=== PATIENT | male | born 1955 | race Caucasian/White ===

== ENCOUNTER 2018-06-07 16:16 | Emergency (ER) | payer OTHER, SELFPAY ==
[2018-06-07 16:21] VITALS: BP 157/80; PULSE 86; RESP 21; TEMP 37; O2SAT 99
--- NOTE | 2018-06-07 16:36 | W.ED.GENAD ---
Discharge Plan Disposition Patient Disposition: AGAINST MEDICAL ADVICE Condition: Serious Discharge Details Chief Complaint: CVA/TIA Clinical Impression: Transient ischemic attack (TIA) Primary Care Provider: Kristin Rivas ED Provider: Guido Rudd Home Meds and New Rx's Prescriptions: Continue prednisolone acetate [Pred Forte] 5 ML drops,suspension 1 drp OS BID RF: 0 atropine 15 ML drops 1 drp OS DAILY RF: 0 levothyroxine 50 mcg tablet 50 mcg PO DAILY Qty: 90 RF: 3 Discharge Instructions Instructions: Transient Ischemic Attack (ED), Against Medical Advice (ED) Additional Instructions: You are leaving AGAINST MEDICAL ADVICE. You may have life-threatening OR lifestyle modifying disease. Please know that you can return to the emergency department at any point for further workup and treatment. Please contact your primary care physician to arrange follow-up. Please follow-up with neurology as soon as possible. Return to the ER for any worsening or new concerning symptoms. Referrals: Kristin Rivas MD [Primary Care Provider] - Marilyn Fuentes MD [ [facility] STAFF PHYSICIAN] - Medical Decision Making [facility] Narrative Medical decision making narrative: 16:45 --62-year-old male with history of hypothyroidism, blindness, presents with sudden onset of weakness of his right upper extremity. Weakness has improved but he still describes a sensation of heaviness in his right arm. Patient has mild right facial droop on exam. ECG reviewed and interpreted by me: Normal sinus rhythm 87 bpm, normal axis, nondiagnostic Stat CT of the head. -- CT head interpreted by radiology: mild global cerebral atrophy, mild atherosclerosis of the cavernous carotid arteries. 17:50 -- Patient reassessed: stable, continues to have some heaviness in right arm, no worsening, no new symptoms. Plan for CTA. Labs pending. 19:30 --CTA of the neck and interpreted by radiology: No acute findings. Plan for admission. I called and spoke with Dr. Balbuena who will admit. 19:45 --work with patient about plan and patient declines admission. I specifically explained to him the high risk of recurrent stroke and recommendation that he be observed in the hospital tonight. I further explained that he will need additional diagnostic testing to determine if this was in fact a stroke and the etiology. I explained that this testing may be delayed she do not be admitted. I explained the patient may suffer from life-threatening her lifestyle modifying disease should he leave at this point AGAINST MEDICAL ADVICE. Patient verbalized understanding of my concerns and still declined admission. Patient has capacity to make informed decision TO REFUSE CARE. I will do my best to help this patient transition to outpatient care and will request timely follow-up with neurology and his primary care physician. Patient advised to take a full dose aspirin daily. HPI - General Adult General Mode of arrival: ambulatory. Date/Time Provider Initiated Documentation: 06/07/18 16:23. Limitations to Documentation: no limitations. Information obtained by: patient and family (). HPI Narrative: 62-year-old male with history of hypothyroidism, blindness, here with chief complaint of weakness of his right arm. Patient notes symptoms started suddenly about 1 hour prior to arrival. Weakness was initially severe and has improved. Still feels somewhat heavy. No other associated deficits. Patient denies headache Patient does state that he had some pain in his right upper back last night after lifting heavy object yesterday. Related Data Home Medications Medication Instructions Recorded Confirmed atropine 1 drp OS DAILY 12/27/12 06/07/18 prednisolone acetate [Pred Forte] 1 drp OS BID drp 12/27/12 06/07/18 Previous Rx's Medication Instructions Recorded levothyroxine 50 mcg tablet 50 mcg PO DAILY #90 tab-cap 06/07/18 Allergies Allergy/AdvReac Type Severity Reaction Status Date / Time Penicillins Allergy Severe Swelling/Ed Unverified 06/07/18 16:24 claudia General Stated Complaint: CVA/TIA SO: 2 Review of Systems Review of Systems All systems reviewed & are unremarkable except as noted in HPI and below Constitutional Reports weakness Cardiovascular Denies chest pain Musculoskeletal Denies numbness Neurologic Reports as per HPI, Denies numbness and Reports weakness PFSH Family History Mother Personal history of malignant neoplasm Father Heart disease Sister No problems noted. Sister No problems noted. Sister No problems noted. Sister No problems noted. Sister No problems noted. Brother No problems noted. Medical History Hypothyroidism (Chronic) Social History Smoking/Tobacco Use Status: Never Exam Const General: cooperative and no acute distress Orientation: alert and awake HENW[place] Head: normocephalic and atraumatic Mouth: moist mucous membranes Neck Neck: normal visual inspection, trachea midline and No JVD Resp Effort & Inspection: normal respiratory effort Auscultation: clear to auscultation bilaterally, no rales, no rhonchi and no wheezes Cardio Rate: regular rate Rhythm: regular rhythm Heart Sounds: no gallops, no murmurs and no rubs GI Palpation: soft and nontender Auscultation: normal bowel sounds Skin General skin exam: dry skin Other: warm Neuro General: alert, awake, tone normal and moves all extremities Cranial Nerves: tongue midline Cognition: normal cognition Speech: speech normal Motor: strength 5/5 throughout and other (rt facial droop mild) Sensory Exam: no sensory deficits noted Coordination: rapid alternating movement UE normal Extrem General: no calf tenderness bilaterally and no pedal edema Psych Appearance: grossly normal Mental Status: mental status grossly normal Affect: normal affect Course Vital Signs Temperature 37 C 06/07/18 16:21 Pulse 86 06/07/18 16:21 Respiratory Rate 21 06/07/18 16:21 Blood Pressure 157/80 H 06/07/18 16:21 Pulse Oximetry 99 06/07/18 16:21 Temperature 37 C 06/07/18 16:21 Pulse 86 06/07/18 16:21 Respiratory Rate 21 06/07/18 16:21 Blood Pressure 157/80 H 06/07/18 16:21 Pulse Oximetry 99 06/07/18 16:21
--- NOTE | 2018-06-07 16:43 | DI.CT_ITS ---
SYMPTOM/DIAGNOSIS: CVA, RT ARM AND FACIAL WEAKNESS, RT FACIAL DROOP NONCONTRAST HEAD CT: A noncontrast cranial CT was performed. The ventricular system is normal in appearance. There is no evidence of an intracranial mass lesion. There is no evidence of a subdural or epidural hematoma. No focal areas of decreased attenuation are seen. CONCLUSION: Normal noncontrast Cranial CT. CTA CERVICAL AND CRANIAL: CT angiography was performed with multi slice acquisition and multi planar and 3D reconstruction. CT angiography of the craniocervical region was performed with intravenous infusion of 85 cc's of Omnipaque 350. The visualized portions of the lungs are clear. Tracheal laryngeal structures appear intact. Visualized paranasal sinuses and mastoid air cells are clear. No cervical mass or adenopathy identified. No superior mediastinal mass or adenopathy. No intracranial mass lesion or enhancing lesion is seen. The orbital structures appear intact. Some rim calcification of the left optic globe is noted along with some lens calcification. Visualized aortic arch is unremarkable. Right common internal and external carotid artery are within normal limits with no significant stenosis, occlusion or aneurysm formation. Left common internal and external carotid artery are within the normal limits with no evidence of stenosis, occlusion, or aneurysm. Right and left vertebral arteries are unremarkable with no evidence of a stenosis or occlusion. Left dominant vertebral circulation noted. Basilar artery appears intact. Unremarkable appearance of the [place] region, no aneurysm of the communicating arteries seen. No significant stenosis, occlusion or aneurysm of right or left anterior middle or posterior cerebral arteries. Note is made of mild degenerative changes of the cervical spine. CONCLUSION: Negative CT angiography of cervicocranial region.
--- NOTE | 2018-06-07 16:47 | ED.GENADUL_ITS ---
Discharge Plan Disposition Patient Disposition: AGAINST MEDICAL ADVICE Condition: Serious Discharge Details Chief Complaint: CVA/TIA Clinical Impression: Transient ischemic attack (TIA) Primary Care Provider: Kristin Rivas ED Provider: Guido Rudd Home Meds and New Rx's Prescriptions: Continue prednisolone acetate [Pred Forte] 5 ML drops,suspension 1 drp OS BID RF: 0 atropine 15 ML drops 1 drp OS DAILY RF: 0 levothyroxine 50 mcg tablet 50 mcg PO DAILY Qty: 90 RF: 3 Discharge Instructions Instructions: Transient Ischemic Attack (ED), Against Medical Advice (ED) Additional Instructions: You are leaving AGAINST MEDICAL ADVICE. You may have life-threatening OR lifestyle modifying disease. Please know that you can return to the emergency department at any point for further workup and treatment. Please contact your primary care physician to arrange follow-up. Please follow- up with neurology as soon as possible. Return to the ER for any worsening or new concerning symptoms. Referrals: Kristin Rivas MD [Primary Care Provider] - Marilyn Fuentes MD [ [facility] STAFF PHYSICIAN] - Medical Decision Making [facility] Narrative Medical decision making narrative: 16:45 --62-year-old male with history of hypothyroidism, blindness, presents with sudden onset of weakness of his right upper extremity. Weakness has improved but he still describes a sensation of heaviness in his right arm. Patient has mild right facial droop on exam. ECG reviewed and interpreted by me: Normal sinus rhythm 87 bpm, normal axis, nondiagnostic Stat CT of the head. -- CT head interpreted by radiology: mild global cerebral atrophy, mild atherosclerosis of the cavernous carotid arteries. 17:50 -- Patient reassessed: stable, continues to have some heaviness in right arm, no worsening, no new symptoms. Plan for CTA. Labs pending. 19:30 --CTA of the neck and interpreted by radiology: No acute findings. Plan for admission. I called and spoke with Dr. Balbuena who will admit. 19:45 --work with patient about plan and patient declines admission. I specifically explained to him the high risk of recurrent stroke and recommendation that he be observed in the hospital tonight. I further explained that he will need additional diagnostic testing to determine if this was in fact a stroke and the etiology. I explained that this testing may be delayed she do not be admitted. I explained the patient may suffer from life- threatening her lifestyle modifying disease should he leave at this point AGAINST MEDICAL ADVICE. Patient verbalized understanding of my concerns and still declined admission. Patient has capacity to make informed decision TO REFUSE CARE. I will do my best to help this patient transition to outpatient care and will request timely follow-up with neurology and his primary care physician. Patient advised to take a full dose aspirin daily. HPI - General Adult General Mode of arrival: ambulatory . Date/Time Provider Initiated Documentation: 06/07/18 16:23 . Limitations to Documentation: no limitations . Information obtained by: patient and family () . HPI Narrative: 62-year-old male with history of hypothyroidism, blindness, here with chief complaint of weakness of his right arm. Patient notes symptoms started suddenly about 1 hour prior to arrival. Weakness was initially severe and has improved. Still feels somewhat heavy. No other associated deficits. Patient denies headache Patient does state that he had some pain in his right upper back last night after lifting heavy object yesterday. Related Data Home Medications Medication Instructions Recorded Confirmed atropine 1 drp OS DAILY 12/27/12 06/07/18 prednisolone acetate [Pred Forte] 1 drp OS BID drp 12/27/12 06/07/18 Previous Rx's Medication Instructions Recorded levothyroxine 50 mcg tablet 50 mcg PO DAILY #90 tab-cap 06/07/18 Allergies Allergy/AdvReac Type Severity Reaction Status Date / Time Penicillins Allergy Severe Swelling/Ed Unverified 06/07/18 16:24 claudia General Stated Complaint: CVA/TIA SO: 2 Review of Systems Review of Systems All systems reviewed & are unremarkable except as noted in HPI and below Constitutional Reports weakness Cardiovascular Denies chest pain Musculoskeletal Denies numbness Neurologic Reports as per HPI, Denies numbness and Reports weakness PFSH Family History Mother Personal history of malignant neoplasm Father Heart disease Sister No problems noted. Sister No problems noted. Sister No problems noted. Sister No problems noted. Sister No problems noted. Brother No problems noted. Medical History Hypothyroidism (Chronic) Social History Smoking/Tobacco Use Status: Never Exam Const General: cooperative and no acute distress Orientation: alert and awake HE[place] Head: normocephalic and atraumatic Mouth: moist mucous membranes Neck Neck: normal visual inspection, trachea midline and No JVD Resp Effort & Inspection: normal respiratory effort Auscultation: clear to auscultation bilaterally, no rales, no rhonchi and no wheezes Cardio Rate: regular rate Rhythm: regular rhythm Heart Sounds: no gallops, no murmurs and no rubs GI Palpation: soft and nontender Auscultation: normal bowel sounds Skin General skin exam: dry skin Other: warm Neuro General: alert, awake, tone normal and moves all extremities Cranial Nerves: tongue midline Cognition: normal cognition Speech: speech normal Motor: strength 5/5 throughout and other (rt facial droop mild) Sensory Exam: no sensory deficits noted Coordination: rapid alternating movement UE normal Extrem General: no calf tenderness bilaterally and no pedal edema Psych Appearance: grossly normal Mental Status: mental status grossly normal Affect: normal affect Course Vital Signs Temperature 37 C 06/07/18 16:21 Pulse 86 06/07/18 16:21 Respiratory Rate 21 06/07/18 16:21 Blood Pressure 157/80 H 06/07/18 16:21 Pulse Oximetry 99 06/07/18 16:21 Temperature 37 C 06/07/18 16:21 Pulse 86 06/07/18 16:21 Respiratory Rate 21 06/07/18 16:21 Blood Pressure 157/80 H 06/07/18 16:21 Pulse Oximetry 99 06/07/18 16:21
--- NOTE | 2018-06-07 17:21 | DI.VRAD_ITS ---
EXAM: CT Head Without Intravenous Contrast CLINICAL HISTORY: 62 years old, male; Signs and symptoms; Other: Right arm weakness, rt facial TECHNIQUE: Axial computed tomography images of the head/brain without intravenous contrast. All CT scans at this facility use at least one of these dose optimization techniques: automated exposure control; mA and/or kV adjustment per patient size (includes targeted exams where dose is matched to clinical indication); or iterative reconstruction. Coronal and sagittal reformatted images were created and reviewed. COMPARISON: No relevant prior studies available. FINDINGS: Brain: Mild global cerebral atrophy. No CT scan evidence of acute stroke. No hemorrhage. No significant white matter disease. Ventricles: Unremarkable. No ventriculomegaly. Bones/joints: Unremarkable. No acute fracture. Soft tissues: Unremarkable. Vasculature: Mild atherosclerosis of the cavernous carotid arteries. Sinuses: Unremarkable as visualized. No acute sinusitis. Mastoid air cells: Unremarkable as visualized. No mastoid effusion. IMPRESSION: No acute findings. The findings were directly communicated to Deshaun Parra NP at 5:20 PM EDT on 06/07/2018 via telephone conference as per stroke protocol. Dictated and Authenticated by: Aristeo Kenny MD. Ordering:ANÍBAL BLUE MD
[2018-06-07 17:51] LABS: Abs Immature Grans 0.01 k/cumm (0.0-0.09); Absolute Basophil Count 0.02 k/cumm (0.0-0.2); Absolute Eosinophil Count 0.07 k/cumm (0.0-0.7); Absolute Lymphocyte Count 1.64 k/cumm (1.2-3.4); Absolute Monocyte Count 0.43 k/cumm (0.11-0.7); Basophils % 0.4; Eosinophils % 1.3; HCT 45.1 % (40.0-50.0); HGB 15.8 g/dL (13.5-17.5); Immature Grans % 0.2; Lymphocytes % 29.4; Mean Corpuscular Hemoglobin 28.2 pg (27.0-33.0); Mean Corpuscular Volume 80.5 fL (80-95); Mean Platelet Volume 9.1 fL (8.0-11.0); Monocytes % 7.7; Platelet Count 180 x1000/uL (130-400); RBC Distribution Width 12.3 % (11.8-14.1); White Blood Cell Count 5.57 k/cumm (4.4-10.8)
[2018-06-07 18:09] LABS: ALT 31 U/L (12-78); AST 18 U/L (15-37); Albumin 3.7 g/dL (3.4-5.0); Alkaline Phosphatase 48 U/L (46-116); Anion Gap 7.3 mmol/L (3-11); BUN 16 mg/dL (7-18); Bilirubin, Total 0.5 mg/dL (0.2-1.0); CO2 27.7 mmol/L (21.0-32.0); CREATININE 1.05 mg/dL (0.70-1.30); Calcium 8.4 mg/dL (8.5-10.1); Chloride 105 mmol/L (98-107); Glucose 135 mg/dL (70-100); Potassium 3.7 mmol/L (3.5-5.1); Sodium 140 mmol/L (136-145); Total Protein 7.1 g/dL (6.4-8.2)
[2018-06-07 18:11] LABS: Troponin I < 0.02 ng/mL (0.00-0.06)
[2018-06-07 18:15] LABS: TSH (W/Ref FT4) 1.28 uIU/mL (0.358-3.74)
[2018-06-07] MEDS: Omnipaque 350 MG/ML 100 ML BTL IV (18:25)
--- NOTE | 2018-06-07 19:20 | DI.VRAD_ITS ---
EXAM: CT Angiography Head With Intravenous Contrast CLINICAL HISTORY: 62 years old, male; Signs and symptoms; Other: CVA, rt facial droop and rt ar TECHNIQUE: Axial computed tomographic angiography images of the head with intravenous contrast using CT angiography protocol. All CT scans at this facility use at least one of these dose optimization techniques: automated exposure control; mA and/or kV adjustment per patient size (includes targeted exams where dose is matched to clinical indication); or iterative reconstruction. MIP reconstructed images were created and reviewed. CONTRAST: 85 mL of omnipaque 350 administered intravenously. COMPARISON: No relevant prior studies available. FINDINGS: Right internal carotid artery: No acute findings. Intracranial segment is patent with no significant stenosis. No aneurysm. Right anterior cerebral artery: Unremarkable. No occlusion or significant stenosis. No aneurysm. Right middle cerebral artery: Unremarkable. No occlusion or significant stenosis. No aneurysm. Right posterior cerebral artery: Unremarkable. No occlusion or significant stenosis. No aneurysm. Right vertebral artery: Unremarkable as visualized. Left internal carotid artery: No acute findings. Intracranial segment is patent with no significant stenosis. No aneurysm. Left anterior cerebral artery: Unremarkable. No occlusion or significant stenosis. No aneurysm. Left middle cerebral artery: Unremarkable. No occlusion or significant stenosis. No aneurysm. Left posterior cerebral artery: Unremarkable. No occlusion or significant stenosis. No aneurysm. Left vertebral artery: Unremarkable as visualized. Basilar artery: Unremarkable. No occlusion or significant stenosis. No aneurysm. Brain: Mild global cerebral atrophy. IMPRESSION: No acute findings. EXAM: CT Angiography Neck With Intravenous Contrast CLINICAL HISTORY: 62 years old, male; Signs and symptoms; Other: CVA, rt facial droop and rt ar TECHNIQUE: Axial computed tomographic angiography images of the neck with intravenous contrast using CT angiography protocol. MIP reconstructed images were created and reviewed. CONTRAST: 85 mL of omnipaque 350 administered intravenously. 85 mL of omnipaque 350 administered intravenously. COMPARISON: No relevant prior studies available. FINDINGS: VASCULATURE: Right common carotid artery: Unremarkable. No significant stenosis. No dissection or occlusion. Right internal carotid artery: Unremarkable. Extracranial segment is patent with no significant stenosis. No dissection or occlusion. Right external carotid artery: Unremarkable. No occlusion. Right vertebral artery: Unremarkable. No significant stenosis. No dissection or occlusion. Left common carotid artery: Unremarkable. No significant stenosis. No dissection or occlusion. Left internal carotid artery: Unremarkable. Extracranial segment is patent with no significant stenosis. No dissection or occlusion. Left external carotid artery: Unremarkable. No occlusion. Left vertebral artery: Unremarkable. No significant stenosis. No dissection or occlusion. NECK: Bones/joints: Degenerative spondylosis of the cervical and upper thoracic spine. No acute fracture. No dislocation. Soft tissues: Unremarkable as visualized. No mass. CAROTID STENOSIS REFERENCE USING NASCET CRITERIA: % ICA stenosis = (1 - narrowest ICA diameter/diameter of distal cervical ICA) x 100. Mild - <50% stenosis. Moderate - 50-69% stenosis. Severe - 70-94% stenosis. Near occlusion - 95-99% stenosis. Occluded - 100% stenosis. IMPRESSION: No acute findings. Dictated and Authenticated by: Aristeo Kenny MD. Ordering:ANÍBAL BLUE MD
[2018-06-07 19:47] VITALS: BP 146/80; PULSE 88; RESP 18; TEMP 36.8; O2SAT 99
[2018-06-07] MEDS: Aspirin 325 MG TAB PO (19:53)
--- NOTE | 2018-06-08 09:04 | PDOC.ERCMPRO ---
Care Management Progress Note 06/08/18-Pt seen on 06/07/[address] for [address] Eula Rodrigez. Pt refused to be admitted inpt. although, Dr. eula Rodrigez explained the riskd. Pt left AMA. F/U ROBERT request was faxed over to Dr. Lev Rivas's office at [facility]. called [facility] and spoke with Brittney. Pt has been booked for f/u appt. with Dr. Rivas on 06/09/18 at 8:40am. notified Dr. Eula rodrigez by email of this.
--- NOTE | 2018-06-08 09:10 | CMPROGNOTE_ITS ---
Care Management Progress Note 06/08/18-Pt seen on 06/07/18 for [address] stroke [address] Eula Rodrigez. Pt refused to be admitted inpt. although, Dr. eula Rodrigez explained the riskd. Pt left AMA. F /U ROBERT request was faxed over to Dr. Lev Rivas's office at [facility]. called [facility] and spoke with Brittney. Pt has been booked for f/u appt. with Dr. Rivas on 06/09/18 at 8:40am. notified Dr. Eula rodrigez by email of this.
== END 2018-06-07 20:17 | disposition left against medical advice (07) ==
PROVIDERS: Emergency Provider Student in an Organized Health Care Education/Training Program; PCP Family Medicine
DX: G45.9 Transient cerebral ischemic attack, unspecified (principal); R29.810 Facial weakness; Z53.29 Procedure and treatment not carried out because of patient's decision for other reasons
CPT/HCPCS: 36415; 36416; 70496; 70498; 80053; 82962; 93005; 99285; 70450; 83735; 84443; 84484; 85025; 93010; J3490

== ENCOUNTER 2018-06-13 01:26 | Outpatient (CLI) | payer OTHER, SELFPAY ==
--- NOTE | 2018-07-04 12:39 | ZIOP_ITS ---
CARDIAC - ZIO PATCH MONITOR DATE OF DICTATION 07/04/[address] 13 days, 2 hours, June 13 - June 26, 2018 INTERPRETATION Baseline rhythm sinus. Rare single PAC. 4 bursts SVT, longest 11.3 seconds, fastest 156 beats per minute. No atrial fibrilla tion. Rare single PVC. 1 burst nonsustained VT, 5 beat duration at 128 beats per minute. No bradycardia or block. 3 triggered events during sinus rhythm +/- PVC, 77 - 120 beats per minute. SYMPTOMS No symptoms. Average heart rate sinus 76 beats per minute, range 50-148 beats per minute. Kwaku Dawson M.D. CATHY/gunner T - 07/04/2018
== END 2018-06-13 01:46 ==
PROVIDERS: PCP Family Medicine; Visit Provider Family Medicine
DX: G45.9 Transient cerebral ischemic attack, unspecified (principal); I47.1 Supraventricular tachycardia
CPT/HCPCS: 93225

== ENCOUNTER 2018-06-15 02:24 | Outpatient (CLI) | payer OTHER, SELFPAY ==
[2018-06-15 11:29] LABS: Cholesterol 182 mg/dL (50-200); HDL Cholesterol 40 mg/dL (40-60); LDL CHOLESTEROL 130 mg/dL (<100); Triglyceride 119 mg/dL (30-150)
== END 2018-06-15 02:44 ==
PROVIDERS: PCP Family Medicine; Visit Provider Family Medicine
DX: I99.8 Other disorder of circulatory system (principal)
CPT/HCPCS: 36415; 80061; 83721

== ENCOUNTER 2018-07-21 00:17 | Outpatient (CLI) | payer OTHER, SELFPAY ==
--- NOTE | 2018-07-21 14:00 | MERGE_ITS ---
*[facility]* *[facility]* [address] [place] [address] Date of study: 07/21/2018 Transthoracic Echocardiography M-mode, complete 2D, complete spectral Doppler, and color Doppler *STUDY CONCLUSIONS* Impressions: PFO identified. Could consider LIDYA to better define. Summary: 1. Left ventricle: The cavity size was normal. Systolic function was hyperdynamic. The estimated ejection fraction was 65-70%. Diastolic parameters were normal. 2. Mitral valve: There was mild regurgitation. 3. Right ventricle: The cavity size was normal. Wall thickness was normal. Systolic function was normal. 4. Atrial septum: There was a 0.7cm patent foramen ovale. There was a [id number] atrial level shunt. 5. Pulmonary arteries: Pulmonary systolic pressure was in the range of 30mm Hg to 40mm Hg. 6. Inferior vena cava: The vessel was patent and normal in size. The respirophasic diameter changes were in the normal range (greater than or equal to 50%), consistent with normal central venous pressure. *PATIENT PRESENTATION* Height: 170.2cm ((67in) ) S/D Pressure: 128 / 76 Weight: 76.7kg ((168.6lb) ) BSA: 1.92m^2 Test start time: 02:10 PM. Test stop time: 03:10 PM. PERFORMING Unknown ORDERING Kristin Rivas REFERRING Kristin Rivas PERFORMING [facility] [employer] ENRICHMENT MANAGER RT Devendra (R)(CT)LEXIE *PROCEDURE DATA* Procedure information: The patient was identified by two identifiers. This study was interpreted by [facility]. Pertinent images and digital data are archived for permanent storage and are available for subsequent review. No prior study was available for comparison. Study status: Routine. Transthoracic echocardiography. M-mode, complete 2D, complete spectral Doppler, and color Doppler. A Transthoracic Echocardiogram was performed. Scanning was performed from the parasternal, apical, subcostal, and suprasternal notch acoustic windows. Images were obtained using an [id number] cardiac ultrasound machine. Image quality was good. Study completion: The patient tolerated the procedure well. History: PMH: Recent TIA. *CARDIAC ANATOMY* Left ventricle: The cavity size was normal. Systolic function was hyperdynamic. The estimated ejection fraction was 65-70%. The tissue Doppler parameters were normal. Diastolic parameters were normal. There was no evidence of elevated ventricular filling pressure by Doppler parameters. Aortic valve: Trileaflet. Doppler: There was no stenosis. There was no regurgitation. VTI ratio of LVOT to aortic valve: 0.82. Valve area (VTI): 3cm^2. Indexed valve area (VTI): 1.6cm^2/m^2. Peak velocity ratio of LVOT to aortic valve: 0.71. Valve area (Vmax): 2.6cm^2. Indexed valve area (Vmax): 1.4cm^2/m^2. Mean velocity ratio of LVOT to aortic valve: 0.79. Valve area (Vmean): 2.9cm^2. Indexed valve area (Vmean): 1.5cm^2/m^2. Mean gradient (S): 4.2mm Hg. Peak gradient (S): 7.9mm Hg. Aorta: Aortic root: The aortic root was normal in size. Ascending aorta: The ascending aorta was normal in size. Mitral valve: Doppler: There was no evidence for stenosis. There was mild regurgitation. Valve area by pressure half-time: 4cm^2. Indexed valve area by pressure half-time: 2.1cm^2/m^2. Peak gradient (D): 2.4mm Hg. Left atrium: The atrium was normal in size. Atrial septum: There was a 0.7cm patent foramen ovale. There was a [id number] atrial level shunt. Right ventricle: The cavity size was normal. Wall thickness was normal. Systolic function was normal. Pulmonic valve: Doppler: There was no evidence for stenosis. There was no significant regurgitation. Tricuspid valve: Doppler: There was mild regurgitation. Pulmonary artery: Poorly visualized. Pulmonary systolic pressure was in the range of 30mm Hg to 40mm Hg. Right atrium: The atrium was normal in size. Pericardium: There was no pericardial effusion. Systemic veins: Inferior vena cava: Well visualized. The vessel was patent and normal in size. The respirophasic diameter changes were in the normal range (greater than or equal to 50%), consistent with normal central venous pressure. Baseline ECG: Normal sinus rhythm. Measurements Left ventricle Value Reference LV ID, ED, PLAX 4.5 cm 3.5 - 6.0 LV ID, ES, PLAX 2.8 cm 2.1 - 4.0 LV PW thickness, ED, PLAX 0.9 cm LV end-diastolic volume, 1-p A2C 69 ml LV ejection fraction, 1-p A2C 69 % LV end-diastolic volume, 1-p A4C 76 ml LV ejection fraction, 1-p A4C 71 % LV e', lateral 0.084 m/sec LV E/e', lateral 9 LV e', medial 0.07 m/sec LV E/e', medial 11 LV e', average 0.077 m/sec LV E/e', average 10 Ventricular septum Value Reference IVS thickness, ED, PLAX 0.9 cm LVOT Value Reference LVOT ID, A-P 2.2 cm LVOT area 3.7 cm^2 LVOT peak velocity, S 1 m/sec LVOT mean velocity, S 0.77 m/sec LVOT VTI, S 22.9 cm LVOT peak gradient, S 4 mm Hg LVOT mean gradient, S 2.6 mm Hg Stroke volume (SV), LVOT DP 84 ml Stroke index (SV/bsa), LVOT DP 44 ml/m^2 Aortic valve Value Reference Aortic valve peak velocity, S 1.4 m/sec Aortic valve mean velocity, S 0.98 m/sec Aortic valve VTI, S 28.0 cm Aortic mean gradient, S 4.2 mm Hg Aortic peak gradient, S 7.9 mm Hg VTI ratio, LVOT/AV 0.82 Aortic valve area, VTI 3 cm^2 Velocity ratio, peak, LVOT/AV 0.71 Aortic valve area, peak velocity 2.6 cm^2 Velocity ratio, mean, LVOT/AV 0.79 Aortic valve area, mean velocity 2.9 cm^2 Aortic valve area/bsa, mean velocity 1.5 cm^2/m^2 Aorta Value Reference Aortic root ID, ED 3.4 cm Ascending aorta ID, A-P, S 3.9 cm RVOT Value Reference RVOT VTI, S 20.2 cm Left atrium Value Reference LA ID, A-P, ES 3.2 cm LA ID/bsa, A-P 1.7 cm/m^2 <=2.2 LA area, ES, A4C 17.7 cm^2 8.8 - 23.4 LA area, ES, A2C 15 cm^2 LA volume/bsa, ES, 1-p A4C 27 ml/m^2 LA volume, ES, 2-p 39 ml LA volume/bsa, ES, 2-p 20 ml/m^2 LA/aortic root ratio 0.95 Mitral valve Value Reference Mitral E-wave peak velocity 0.78 m/sec Mitral A-wave peak velocity 0.6 m/sec Mitral deceleration time 189 ms 150 - 230 Mitral pressure half-time 55 ms Mitral peak gradient, D 2.4 mm Hg Mitral E/A ratio, peak 1.3 Mitral valve area, PHT, DP 4 cm^2 Pulmonary veins Value Reference Pulmonary vein peak velocity, S 0.61 m/sec Pulmonary vein peak velocity, D 0.49 m/sec Pulmonary vein velocity ratio, peak, 1.27 S/D Pulmonary vein A-wave reversal peak 0.59 m/sec velocity Pulmonary vein A-wave reversal 182 ms duration Tricuspid valve Value Reference Tricuspid regurg peak velocity 2.9 m/sec Tricuspid peak RV-RA gradient 32.9 mm Hg Right atrium Value Reference RA area, ES, A4C 13.3 cm^2 8.3 - 19.5 Legend: (L) and (H) denise values outside specified reference range. I have personally reviewed the images and have reviewed and edited the reported findings. Electronically signed by Kwaku Dawson MD 07/21/2018 17:19
== END 2018-07-21 00:37 ==
PROVIDERS: PCP Family Medicine; Visit Provider Family Medicine
DX: G45.9 Transient cerebral ischemic attack, unspecified (principal); I34.0 Nonrheumatic mitral (valve) insufficiency; I47.1 Supraventricular tachycardia
CPT/HCPCS: 93306

== ENCOUNTER 2019-06-06 01:29 | Outpatient (CLI) | payer OTHER, SELFPAY ==
[2019-06-06 13:36] LABS: TSH 2.02 uIU/mL (0.36-3.74)
== END 2019-06-06 01:49 ==
PROVIDERS: PCP Family Medicine; Visit Provider Family Medicine
DX: E03.9 Hypothyroidism, unspecified (principal)
CPT/HCPCS: 36415; 84443

== ENCOUNTER 2020-07-19 01:51 | Outpatient (CLI) | payer OTHER, SELFPAY ==
[2020-07-19 13:14] LABS: TSH 3.07 uIU/mL (0.36-3.74)
== END 2020-07-19 02:11 ==
PROVIDERS: Emergency Medicine; PCP Family Medicine; Visit Provider Family Medicine
DX: E03.9 Hypothyroidism, unspecified (principal)
CPT/HCPCS: 36415; 84443

== ENCOUNTER 2021-03-12 02:00 | Outpatient (CLI) | payer OTHER, SELFPAY ==
[2021-03-12 12:56] LABS: ESR 4 mm/hr (0-20)
[2021-03-12 13:11] LABS: ALT 31 U/L (16-63); AST 16 U/L (15-37); Alkaline Phosphatase 52 U/L (46-116); Anion Gap 9.1 mmol/L (3-11); BUN 11 mg/dL (7-18); Bilirubin, Total 0.8 mg/dL (0.2-1.0); CO2 28.9 mmol/L (21.0-32.0); Calcium 9.1 mg/dL (8.5-10.1); Calculated LDL 142 mg/dL (<100); Chloride 104 mmol/L (98-107); Cholesterol 211 mg/dL (<200); Glucose 98 mg/dL (74-106); HDL Cholesterol 36 mg/dL (40-60); Sodium 142 mmol/L (136-145); Total Protein 7.3 g/dL (6.4-8.2); Triglyceride 165 mg/dL (<150); Vitamin B12 326 pg/mL (193-986)
== END 2021-03-12 02:01 | disposition home or self-care (01) ==
LOC: LOS 02:00
PROVIDERS: PCP Family Medicine; Visit Provider Family Medicine
DX: R20.2 Paresthesia of skin (principal); Z86.73 Personal history of transient ischemic attack (TIA), and cerebral infarction without residual deficits; E03.9 Hypothyroidism, unspecified
CPT/HCPCS: 36415; 80053; 80061; 85652; 82607

== ENCOUNTER 2021-07-02 08:10 | Outpatient (CLI) | payer MEDICARE, OTHER, SELFPAY ==
[2021-07-02 13:09] LABS: TSH 1.54 uIU/mL (0.36-3.74)
[2021-07-02 22:27] LABS: PSA, Screening 0.5 ng/mL (0.0-4.5)
== END 2021-07-02 08:11 | disposition home or self-care (01) ==
LOC: LOS 08:11
PROVIDERS: PCP Family Medicine; Visit Provider Family Medicine
DX: E03.9 Hypothyroidism, unspecified (principal); Z12.5 Encounter for screening for malignant neoplasm of prostate; N40.0 Benign prostatic hyperplasia without lower urinary tract symptoms
CPT/HCPCS: 36415; 84153; 84443

== ENCOUNTER 2022-09-02 02:57 | Outpatient (CLI) | payer MEDICARE, SELFPAY | END 2022-09-02 02:58 | disposition home or self-care (01) | LOC: LOS 02:57 | PROVIDERS: PCP Nurse Practitioner Family; Visit Provider Nurse Practitioner Family | DX: E03.9 Hypothyroidism, unspecified (principal) | CPT/HCPCS: 36415; 84443 ==

== ENCOUNTER 2023-03-19 01:15 | Outpatient (CLI) | payer MEDICARE, SELFPAY ==
[2023-03-19 12:59] LABS: TSH (W/Ref FT4) 3.49 uIU/mL (0.36-3.74)
== END 2023-03-19 01:16 | disposition home or self-care (01) ==
LOC: LOS 01:15
PROVIDERS: PCP Nurse Practitioner Family; Visit Provider Nurse Practitioner Family
DX: E03.9 Hypothyroidism, unspecified (principal)
CPT/HCPCS: 36415; 84443

== ENCOUNTER 2023-07-12 03:38 | Outpatient (CLI) | payer MEDICARE, SELFPAY ==
[2023-07-12 12:50] LABS: TSH (W/Ref FT4) 4.86 uIU/mL (0.36-3.74)
[2023-07-12 13:55] LABS: FREE T4 0.83 ng/dL (0.76-1.46)
== END 2023-07-12 03:39 | disposition home or self-care (01) ==
PROVIDERS: PCP Nurse Practitioner Family; Visit Provider Nurse Practitioner Family
DX: E03.9 Hypothyroidism, unspecified (principal)
CPT/HCPCS: 36415; 84439; 84443

== ENCOUNTER 2024-06-05 04:46 | Outpatient (CLI) | payer MEDICARE, SELFPAY ==
[2024-06-05 12:42] LABS: TSH (W/Ref FT4) 2.38 uIU/mL (0.36-3.74)
[2024-06-05 18:10] LABS: PSA, Screening 0.6 ng/mL (<=4.5)
== END 2024-06-05 04:47 | disposition home or self-care (01) ==
LOC: LOS 04:47
PROVIDERS: PCP Nurse Practitioner Family; Visit Provider Nurse Practitioner Family
DX: E03.9 Hypothyroidism, unspecified (principal); Z12.5 Encounter for screening for malignant neoplasm of prostate
CPT/HCPCS: 36415; 84153; 84443

== ENCOUNTER 2025-03-29 02:12 | Outpatient (CLI) | payer MEDICARE, SELFPAY ==
[2025-03-29 12:35] LABS: HCT 48.8 % (40.0-50.0); HGB 16.8 g/dL (13.5-17.5); MCH 28.5 pg (27.0-33.0); MCHC 34.4 % (32.0-36.0); MCV 83 fL (80-95); MPV 9.5 fL (8.0-11.0); Platelet Count 169 10^3/uL (130-400); RBC 5.90 10^6/uL (4.36-5.78); RDW 12.2 % (11.8-14.1); RDW-SD 36.9 fL; WBC 7.46 10^3/uL (4.4-10.8)
[2025-03-29 13:52] LABS: ALT 30 U/L (16-63); AST 21 U/L (15-37); Albumin 4.0 g/dL (3.4-5.0); Alkaline Phosphatase 61 U/L (46-116); Anion Gap 8.0 mmol/L (3-11); BUN 12 mg/dL (7-18); Bilirubin, Total 0.9 mg/dL (0.2-1.0); CO2 30.0 mmol/L (21.0-32.0); Calcium 9.5 mg/dL (8.5-10.1); Calculated LDL 130 mg/dL (<100); Chloride 103 mmol/L (98-107); Cholesterol 205 mg/dL (<200); Estimated GFR 81.47 (mL/min/1.73m2); Glucose 114 mg/dL (74-106); HDL Cholesterol 40 mg/dL (>or=40); Potassium 3.8 mmol/L (3.5-5.1); Sodium 141 mmol/L (136-145); TSH (W/Ref FT4) 2.46 uIU/mL (0.36-3.74); Total Protein 7.4 g/dL (6.4-8.2); Triglyceride 175 mg/dL (<150)
== END 2025-03-29 02:13 | disposition home or self-care (01) ==
LOC: LOS 02:12
PROVIDERS: PCP Nurse Practitioner Family; Visit Provider Nurse Practitioner Family
DX: E03.9 Hypothyroidism, unspecified (principal); E78.5 Hyperlipidemia, unspecified
CPT/HCPCS: 36415; 80053; 80061; 85027; 84443